=== PATIENT | female | born 1970 | race American Indian/Alaskan Native ===

== ENCOUNTER 2018-09-27 11:27 | Emergency (ER) | payer BC ==
--- NOTE | 2018-09-27 11:39 | Emergency Department Report ---
Blank Doc - Documentation Documentation: This is a 48-year-old female that presents with pelvic pain with n/v. This initial assessment/diagnostic orders/clinical plan/treatment(s) is/are subject to change based on patient's health status, clinical progression and re- assessment by fellow clinical providers in the ED. Further treatment and workup at subsequent clinical providers discretion. Patient/guardians urged not to elope from the ED as their condition may be serious if not clinically assessed and managed. Initial orders include: 1- Patient sent to [facility] for further evaluation and treatment 2- labs 3- UA
[2018-09-27 12:21] LABS: Alanine Aminotransferase 8 units/L (7-56); BUN/Creatinine Ratio 16; Blood Urea Nitrogen 13 mg/dL (7-17); Calcium 9.3 mg/dL (8.4-10.2); Hemolysis Index 3
[2018-09-27 12:49] LABS: Basophils % (Auto) 0.3 % (0.0-1.8); Eosinophils % (Auto) 0.7 % (0.0-4.3); Hematocrit 37.6 % (30.3-42.9); Hemoglobin 12.1 gm/dl (10.1-14.3); Lymphocytes # (Auto) 1.8 K/mm3 (1.2-5.4); Lymphocytes % (Auto) 29.3 % (13.4-35.0); Mean Corpuscular HGB Conc 32 % (30-34); Mean Corpuscular Volume 86 fl (79-97); Monocytes # (Auto) 0.3 K/mm3 (0.0-0.8); Monocytes % (Auto) 5.1 % (0.0-7.3); Platelet Count 182 K/mm3 (140-440); Red Blood Count 4.37 M/mm3 (3.65-5.03); Red Cell Distribution Width 16.2 % (13.2-15.2)
[2018-09-27 12:50] LABS: Bilirubin,Urine NEG (Negative); Blood,Urine SM (Negative); Color,Urine Yellow (Yellow); Mucus,Urine FEW /HPF; Protein,Urine <15 mg/dL mg/dL (Negative); Urobilinogen,Urine < 2.0 mg/dL (<2.0)
--- NOTE | 2018-09-27 15:17 | Emergency Department Report ---
<DARIEN SNYDERROBERTO CecilyMary - Last Filed: 09/27/18 15:37> ED Abdominal Pain HPI - General Chief Complaint: Abdominal Pain Stated Complaint: LOWER STOMACH PAIN Time Seen by Provider: 09/27/18 11:37 Source: patient Mode of arrival: Ambulatory Limitations: No Limitations - History of Present Illness Initial Comments: 48-year-old female presents to ED for lower abdominal pain. Patient states pain is coming from her fibroids. 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 Patient states she went to her primary care physician's office on yesterday because of the pain, states was given an anti-inflammatory injection. Patient returns to the ER today because of continued pain. Patient denies any vaginal bleeding currently, denies any urinary symptoms. MD Complaint: abdominal pain -: days(s) (3) Location: suprapubic Radiation: none Migration to: no migration Severity: moderate Quality: cramping Consistency: constant Improves With: nothing Worsens With: nothing Associated Symptoms: denies: nausea, vomiting, fever, dysuria - Related Data Previous Rx's Medication Instructions Recorded Last Taken Type Naproxen [Naprosyn] 500 mg PO BID #20 tablet 09/27/18 Unknown Rx traMADol [Ultram] 50 mg PO Q6HR PRN #15 tablet 09/27/18 Unknown Rx Allergies Allergy/AdvReac Type Severity Reaction Status Date / Time No Known Allergies Allergy Unverified 09/27/18 11:30 ED Review of Systems Comment: All other systems reviewed and negative Constitutional: denies: chills, fever Gastrointestinal: abdominal pain. denies: nausea, vomiting, diarrhea Genitourinary: denies: dysuria, frequency, hematuria ED Past Medical Hx - Past Medical History Hx Hypertension: Yes Additional medical history: uterine fibroids - Surgical History Past Surgical History?: No - Social History Smoking Status: Never Smoker Substance Use Type: Alcohol - Medications Home Medications: Home Medications Medication Instructions Recorded Confirmed Last Taken Type Naproxen [Naprosyn] 500 mg PO BID #20 tablet 09/27/18 Unknown Rx traMADol [Ultram] 50 mg PO Q6HR PRN #15 tablet 09/27/18 Unknown Rx ED Physical Exam - General Limitations: No Limitations General appearance: alert, in no apparent distress - Head Head exam: Present: atraumatic, normocephalic - Eye Eye exam: Present: normal appearance, PERRL, EOMI - ENT ENT exam: Present: mucous membranes moist - Neck Neck exam: Present: normal inspection - Respiratory Respiratory exam: Present: normal lung sounds bilaterally. Absent: respiratory distress - Cardiovascular Cardiovascular Exam: Present: regular rate, normal rhythm - GI/Abdominal GI/Abdominal exam: Present: soft, tenderness (mild suprapubic). Absent: distended - Extremities Exam Extremities exam: Present: normal inspection - Neurological Exam Neurological exam: Present: alert, oriented X3 - Psychiatric Psychiatric exam: Present: normal affect, normal mood - Skin Skin exam: Present: warm, dry, intact, normal color ED Course - Reevaluation(s) Reevaluation #1: 09/27/18 15:37 Discharge papers given to pt b/c pt reported that her pain is no different in character than it has always been, and feels like her fibroids. However, she is now reporting that her PCP sent her to the ER for a CT scan. When viewing pt's paperwork, pt has order for an outpt CT scan for which she is supposed to call and set up an appt. Offered to order a CT here in ED. Advised that she will be here for a few more hours. Pt states ok. ED Medical Decision Making - Lab Data Result diagrams: 09/27/18 11:49 09/27/18 11:49 ED Disposition Clinical Impression: Ovarian cyst Qualifiers: Laterality: unspecified laterality Qualified Code(s): N83.209 - Unspecified ovarian cyst, unspecified side Abdominal pain Qualifiers: Abdominal location: unspecified location Qualified Code(s): R10.9 - Unspecified abdominal pain Disposition: DC-01 TO HOME OR SELFCARE Is pt being admited?: No Condition: Stable Instructions: Uterine Fibroids (ED) Prescriptions: Naproxen [Naprosyn] 500 mg PO BID #20 tablet traMADol [Ultram] 50 mg PO Q6HR PRN #15 tablet PRN Reason: Pain Referrals: MARIBELL AGUILA MD [Primary Care Provider] - 3-5 Days CRYSTAL CARNES MD [Staff Physician] - 3-5 Days Time of Disposition: 15:17 <MILIND HILARIO - Last Filed: 09/27/18 19:13> ED Review of Systems ROS: Stated complaint: LOWER STOMACH PAIN Other details as noted in HPI ED Course Vital Signs 09/27/18 09/27/18 11:37 15:32 Temperature 98.0 F Pulse Rate 74 78 Respiratory 18 97 H Rate Blood Pressure 194/94 Blood Pressure 164/84 [Left] O2 Sat by Pulse 100 Oximetry ED Medical Decision Making - Lab Data Result diagrams: 09/27/18 11:49 09/27/18 11:49 - Medical Decision Making Ordering Physician: ELIDA SNYDER MD Date of Service: 09/27/18 Procedure(s): CT abdomen pelvis w con Accession Number(s): [id number] cc: ELIDA SNYDER MD CT abdomen pelvis w con INDICATION: abd pain, hx fibroids. TECHNIQUE: All CT scans at this location are performed using CT dose reduction for ALARA by means of automated exposure control. COMPARISON: None available. FINDINGS: 6 lung bases are clear. Liver, gallbladder, spleen, pancreas, kidneys and adrenals are negative. Abdominal aorta is normal in size. No adenopathy. Pelvis Normal appendix. A 4.5 cm cystic-appearing mass just to the right of the uterus could possibly represent a degenerated fibroid, but the appearance is more suggestive of an ovarian cyst. No free fluid. Urinary bladder appears negative. No appreciable bowel abnormalities. IMPRESSION: 1. 4.5 cm cystic-appearing mass to the right of the uterus, probably right ovarian cyst. Signer Name: Royer Phillips MD Signed: 09/27/2018 7:04 PM Workstation Name: [id number] Transcribed By: TM Dictated By: Royer Phillips MD Electronically Authenticated By: Royer Phillips MD Signed Date/Time: 09/27/181903 DD/ 56 TD/TT: Critical care attestation.: If time is entered above; I have spent that time in minutes in the direct care of this critically ill patient, excluding procedure time.
--- NOTE | 2018-09-27 19:08 | Cat Scan Report ---
CT abdomen pelvis w con INDICATION: abd pain, hx fibroids. TECHNIQUE: All CT scans at this location are performed using CT dose reduction for ALARA by means of automated e xposure control. COMPARISON: None available. FINDINGS: 6 lung bases are clear. Liver, gallbladder, spleen, pancreas, kidneys and adrenals are negative. Abdo prudence aorta is normal in size. No adenopathy. Pelvis Normal appendix. A 4.5 cm cystic-appearing mass just to the right of the uterus could possibly repres ent a degenerated fibroid, but the appearance is more suggestive of an ovarian cyst. No free fluid. U rinary bladder appears negative. No appreciable bowel abnormalities. IMPRESSION: 1. 4.5 cm cystic-appearing mass to the right of the uterus, probably right ovarian cyst. Signer Name: Royer Phillips MD Signed: 09/27/2018 7:04 PM Workstation Name: [id number]
[2018-09-27 19:36] VITALS: BP 156/78
== END 2018-09-27 19:36 | disposition home or self-care (01) ==
LOC: ED 11:27
DX: N83.209 Unspecified ovarian cyst, unspecified side (principal); I10 Essential (primary) hypertension
CPT/HCPCS: 36415; 74177; 80053; 81001; 83690; 84703; 85025; 99284; Q9967